=== PATIENT | male | born 1985 | race Caucasian/White ===

== ENCOUNTER 2019-01-25 22:36 | Observation (INO) | payer BC ==
[~2019-01-25] VITALS: Ht 172.7 cm; Wt 58.0 kg
--- NOTE | 2019-01-25 22:45 | NUR ---
PATIENT TO ROOM 10 VIA WHEELCHAIR FOR EVAL. PATIENT EATING MCDONALDS WHILE IN TRIAGE. PATIENT INFORMED OF NEED FOR NPO STATUS. PATIENT STATES "YOU AREN'T GOING TO STARVE ME HERE." PATIENT UNDRESSED INTO A GOWN, CONTINUES EATING. AWAITING MD MARQUEZ.
--- NOTE | 2019-01-25 23:30 | NUR ---
STARTED GASTROGRAFFIN. IV ESTABLISHED AND FLUID INFUSING. REQUESTED URINE SPECIMEN. STATES UNABLE AT THIS TIME.
[2019-01-25 23:33] LABS: HEMATOCRIT 40.7 % (39.0-50.0); HEMOGLOBIN 14.4 g/dl (14.0-18.0); IMMATURE GRANULOCYTES 0.4 % (0.0-5.0); MEAN CELL VOLUME 92.3 fL CALC (80.0-100.0); MEAN CORPUSCULAR HGB 32.7 pG CALC (26.0-32.0); MEAN CORPUSCULAR HGB CONC 35.4 g/L CALC (32.0-36.0); NEUT# 8.46 thou/uL (1.82-7.42); RED BLOOD COUNT 4.41 mill/uL (4.70-6.10); RED CELL DISTRI WIDTH 12.9 % (11.5-15.5)
--- NOTE | 2019-01-25 23:46 | NUR ---
UOP 500 CC CLEAR YELLOW
[2019-01-25 23:58] LABS: URINE BILIRUBIN - DIPSTICK NEGATIVE (NEGATIVE); URINE BLOOD DIPSTICK NEGATIVE (NEGATIVE); URINE COLOR YELLOW; URINE GLUCOSE - DIPSTICK NEGATIVE (NEGATIVE); URINE KETONE NEGATIVE (NEGATIVE); URINE LEUK ESTERASE NEGATIVE (NEGATIVE); URINE NITRITE - DIPSTICK NEGATIVE (Negative); URINE PH 5.5 (4.5-8.0); URINE PROTEIN - DIPSTICK NEGATIVE (NEG-TRACE); URINE SPECIFIC GRAVITY <=1.005; URINE UROBILINOGEN - DIPSTICK 0.2 E.U./dL (0.2)
[2019-01-26 00:06] LABS: ALBUMIN 5.2 g/dL (3.2-5.0); ALKALINE PHOSPHATASE 72 u/l (38-126); AMYLASE 79 u/l (30-110); BILIRUBIN, TOTAL 0.8 mg/dL (0.0-1.4); BUN 12 mg/dL (9-20); BUN/CREATININE RATIO 10 (12-20 (CALC)); CARBON DIOXIDE 27 mmol/l (22-30); CHLORIDE 100 mmol/l (95-108); CREATININE 1.2 mg/dL (0.7-1.3); GFR > 60 ML/MIN (>=60 (CALC)); GFR FOR AFR.AMER. > 60 ML/MIN (>=60 (CALC)); LIPASE 41 u/l (23-300); SGOT/AST 54 u/l (17-59); SODIUM 139 mmol/l (137-146); TOTAL PROTEIN 8.5 g/dL (6.3-8.2)
[2019-01-26 00:06] LABS: BARBITURATES NEGATIVE (NEGATIVE); COCAINE NEGATIVE (NEGATIVE); METHADONE NEGATIVE (NEGATIVE); OXCYCODONE NEGATIVE (NEGATIVE); TETRAHYDROCANNABIONOL POSITIVE (NEGATIVE); TRICYLIC ANTIDEPRESSANTS NEGATIVE (NEGATIVE)
[2019-01-26 00:10] LABS: ANION GAP 15 (6-22 (CALC))
[2019-01-26 00:11] LABS: POTASSIUM 3.3 mmol/l (3.5-5.1)
--- NOTE | 2019-01-26 00:30 | NUR ---
COMPLETED GASTROGRAFFIN. WATCHING TV APPEARS COMFORTABLE.
--- NOTE | 2019-01-26 00:57 | NUR ---
UOP 575 CC
--- NOTE | 2019-01-26 01:20 | NUR ---
APPEARS COMFORTABLE AWAITING TEST RESULTS.
--- NOTE | 2019-01-26 03:15 | NUR ---
Admission Note Report Given to: JOHNY SHARMA Transported by: Wheelchair X Stretcher Transported with: X Nurse Transporter X Patent IV O2 Scholarship Counselor
[2019-01-26 03:30] VITALS: BP 131/78
--- NOTE | 2019-01-26 03:30 | NUR ---
PT ARRIVED TO THE FLOOR ACCOMPANIED BY ED NURSE. AIDE IN W/PT AT THIS TIME OBTAINING V/S AND WEIGHT
--- NOTE | 2019-01-26 03:58 | NUR ---
PT ASSESSMENT COMPLETE AT THIS TIME. PT C/O OF PAIN AND REQUESTING NICOTINE PATCH. WILL NOTIFY PHYSICIAN FOR ORDERS.
--- NOTE | 2019-01-26 04:04 | NUR ---
SPOKE W/ED PHYSICIAN/ORDERS RECEIVED. WILL MEDICATE PT ORDERS BECOME AVAILABLE.
--- NOTE | 2019-01-26 06:20 | NUR ---
TECHNICAL CUSTOMER SUPPORT SPECIALIST CALLED TO INFORM ME THAT PT MAY BE GOING TO OR THIS AM. PT NOTIFIED AND ENCOURAGED TO GET A SHOWER IN PREPARATION/REFUSED SHOWER STATING, "I ALREADY TOOK ONE, I TOOK A BIG SWIG OF WISKEY, SMOKE A FAT ONE AND GOT IN THE SHOWER BEFORE COMING HERE." CHART IS BEING PREPPED AT THIS TIME.
[2019-01-26 08:35] VITALS: BP 111/69
--- NOTE | 2019-01-26 08:35 | NUR ---
ASSESSMENT IS COMPLETED: IV SITE IS FREE FROM REDNESS OR EDEMA. HR IS REG,PULSES ARE STRONG X4, ABD IS SOFT WITH ACTIVE BS,.BREATH SOUNDS ARE CLEAR AND COARSE IN BASE ON R LUNG, FAMILY IN THE ROOM. CONTINUE TO OSBERVE AND MONITOR.
--- NOTE | 2019-01-26 12:20 | NUR ---
PT IS RESTING IN BED WITH NO DISTRESS NOTED. IV SITE IS FREE FROM REDNESS OR EDEMA. FAMILY IN THE ROOM.CONTINUE TO OSBERVE AND MONITOR,.
[2019-01-26] MEDS ORDERED: AMOXICILLIN/PO500 MG PO (13:42)
[2019-01-26] MEDS ORDERED: MAPAP325 MG PO (13:43)
--- NOTE | 2019-01-26 14:40 | NUR ---
IV SITE DISCONTINEUD CATHETER INTACT. GAVE DISCHARGE INSTRUCTIONS TO THE PT AND FAMILY. WITH SCRIPTS TO TAKE TO THE PHARMACY. Discharge instructions given. Patient verbalizes understanding of same. Discharged in stable condition via Wheelchair to Home with family. All belongings sent with pt.
--- NOTE | 2019-01-26 14:44 | NUR ---
IV SITE DISCONTINUED CATHETER INTACT. PT WAS UPSET DUE TO COMING IN AND TALKING ABOUT HIS PERSONAL DRUG HABIT IN FRONT OF HIS MOTHER. DISCHARGE INSTRUCTIONS GIVEN AND VERBALIZED UNDERSTANDING. WILL AMBULATE OFF THE UNIT TO GO HOME WANTS TO GO AND SMOKE. ALSO REQUESTED [employer] FOR HOME , EXPLAINED THAT NO ORDER WAS GIVEN.
== END 2019-01-26 14:40 | disposition home or self-care (01) | DRG 392 ==
LOC: ED 22:36 → ED-I 01-26 02:12 → ED 01-26 02:34 → MS2 01-26 02:35
PROVIDERS: ADMIT Internal Medicine; ATTEND Internal Medicine
DX: R10.33 Periumbilical pain (principal); R22.2 Localized swelling, mass and lump, trunk; F15.90 Other stimulant use, unspecified, uncomplicated; F17.210 Nicotine dependence, cigarettes, uncomplicated; Z53.09 Procedure and treatment not carried out because of other contraindication
CPT/HCPCS: G0378; J1650